=== PATIENT | male | born 1980 | race American Indian/Alaskan Native ===

== ENCOUNTER 2019-03-30 00:35 | Emergency (ER) | payer OTHER ==
[2019-03-30 00:49] VITALS: BP 178/113
[2019-03-30] MEDS ORDERED: ULTRAM PO ONE (01:14)
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
== END 2019-03-30 01:55 | disposition home or self-care (01) ==
LOC: ED 00:35
DX: S16.1XXA Strain of muscle, fascia and tendon at neck level, initial encounter (principal); F17.200 Nicotine dependence, unspecified, uncomplicated; Z98.890 Other specified postprocedural states; V49.49XA Driver injured in collision with other motor vehicles in traffic accident, initial encounter; Y93.89 Activity, other specified; Y92.410 Unspecified street and highway as the place of occurrence of the external cause; Y99.8 Other external cause status

== ENCOUNTER 2019-09-13 07:45 | Emergency (ER) | payer SELFPAY ==
[2019-09-13 08:03] VITALS: BP 143/92
--- NOTE | 2019-09-13 08:22 | Emergency Department Report ---
Abscess Boil HPI - HPI Chief Complaint: Fall Stated Complaint: FALL Time Seen by Provider: 09/13/19 08:20 Duration: 3 Days Location: Perianal Severity: Mild History: Yes Pain, Yes Previous History, No Fever, No Purulent Drainage, No Numbness, No Foreign Body, No Insect Bite HPI: This is a 38-year-old male that presents complaining of right to middle buttock pain and swelling for the past 2-3 days. Patient states that he tripped down a couple of steps earlier today and hit his but which made the pain worse. Patient states that he has had this swelling before on his buttock. He denies fevers/chills/nausea vomiting abdominal pain or any other symptoms. Patient states he is able to have bowel movements normally without any problems, no blood, plus noted in stool. Home Medications: Previous Rx's Medication Instructions Recorded Last Taken Type Cyclobenzaprine [Flexeril] 10 mg PO TID PRN #30 tablet 03/30/19 Unknown Rx Menthol/Camphor [[place] 1 applicatio TP QID PRN #1 tube 03/30/19 Unknown Rx Ointment] Naproxen [Naprosyn TAB] 500 mg PO BID PRN #30 tablet 03/30/19 Unknown Rx Clindamycin [Clindamycin CAP] 300 mg PO TID #21 capsule 09/13/19 Unknown Rx Ibuprofen [Motrin 800 MG tab] 800 mg PO TID #30 tablet 09/13/19 Unknown Rx cephALEXin [Keflex] 500 mg PO Q12HR #10 cap 09/13/19 Unknown Rx Allergies/Adverse Reactions: Allergies Allergy/AdvReac Type Severity Reaction Status Date / Time No Known Allergies Allergy Unverified 09/13/19 07:48 ED Review of Systems ROS: Stated complaint: FALL Other details as noted in HPI Comment: All other systems reviewed and negative ED Past Medical Hx - Past Medical History Previous Medical History?: No - Surgical History Past Surgical History?: No Additional Surgical History: Right arm - Social History Smoking Status: Current Every Day Smoker Substance Use Type: None - Medications Home Medications: Home Medications Medication Instructions Recorded Confirmed Last Taken Type Cyclobenzaprine [Flexeril] 10 mg PO TID PRN #30 tablet 03/30/19 Unknown Rx Menthol/Camphor [[place] 1 applicatio TP QID PRN #1 tube 03/30/19 Unknown Rx Ointment] Naproxen [Naprosyn TAB] 500 mg PO BID PRN #30 tablet 03/30/19 Unknown Rx Clindamycin [Clindamycin CAP] 300 mg PO TID #21 capsule 09/13/19 Unknown Rx Ibuprofen [Motrin 800 MG tab] 800 mg PO TID #30 tablet 09/13/19 Unknown Rx cephALEXin [Keflex] 500 mg PO Q12HR #10 cap 09/13/19 Unknown Rx ED Abscess Boil Physical Exam - Exam General: Vital signs noted. No distress. Alert and acting appropriately. Size: 2 cm Exam: Yes Tenderness (mild), Yes Surrounding Cellulites/Erythema, Yes Normal Neurologic Exam, Yes Normal Circulation, No Fluctuance, No Lymphangitis, No Crepitation, No Heart Murmur Exam: There was some mild she agrees cellulitis region at the right in the bladder close to the rectum. Area was mildly tender to palpation, there was no drainage, there is no fluctuant. It was about 1-2 cm of erythema I & D Note - I & D Note I & D Note: I&D was not performed as finding was not indicated due to patient having in the rectal cellulitis and not a true abscess ED Course Vital Signs 09/13/19 07:50 Temperature 98.8 F Pulse Rate 96 H Respiratory 18 Rate Blood Pressure 143/92 O2 Sat by Pulse 100 Oximetry Critical care attestation.: If time is entered above; I have spent that time in minutes in the direct care of this critically ill patient, excluding procedure time. ED Medical Decision Making - Medical Decision Making 38-year-old male presents with in the rectal cellulitis Patient received clindamycin and Motrin in ED I encouraged patient to continue applying heat compresses as he has been doing for the past 3 days Patient will be sent home on a trial of antibiotics and pain meds and follow-up with primary care physician Vital signs are normal patient is in no acute distress ED Disposition Clinical Impression: Cellulitis of rectal area Disposition: TO HOME OR SELFCARE Is pt being admited?: No Does the pt Need Aspirin: No Condition: Stable Instructions: Cellulitis (ED) Additional Instructions: Make sure to follow up with the primary care physician as discussed. Take all your medications as you've been prescribed. If you have any worsening symptoms or develop new symptoms please return to ED immediately. Prescriptions: Clindamycin [Clindamycin CAP] 300 mg PO TID #21 capsule cephALEXin [Keflex] 500 mg PO Q12HR #10 cap Ibuprofen [Motrin 800 MG tab] 800 mg PO TID #30 tablet Referrals: [facility] [Outside] - 3-5 Days [facility] [Outside] - 3-5 Days Forms: Work/School Release Form(ED) Time of Disposition: 09:31
[2019-09-13] MEDS ORDERED: CLINDAMYCIN 300 MG CAP PO ONE (09:05)
[2019-09-13] MEDS ORDERED: IBUPROFEN 800 MG TAB PO ONE (09:06)
== END 2019-09-13 09:45 | disposition home or self-care (01) ==
LOC: ED 07:45
DX: K61.1 Rectal abscess (principal); F17.200 Nicotine dependence, unspecified, uncomplicated; Z79.899 Other long term (current) drug therapy

== ENCOUNTER 2019-09-14 17:05 | Emergency (ER) | payer SELFPAY ==
--- NOTE | 2019-09-14 20:18 | Event Note ---
ED Screening Note Date of service: 09/14/19 Time: 20:18 ED Screening Note: This is a 38 y.o. M. that presents to the ER with perianal abscess x 5 days. Started on antibiotics yesterday. Reports worsening symptoms. This initial assessment/diagnostic orders/clinical plan/treatment(s) is/are owens bject to change based on patients health status, clinical progression and re- assessment by fellow clinical providers in the ED. Further treatment and workup at subsequent clinical providers discretion. Patient/guardian urged not to elope from the ED as their condition may be serious if not clinically assessed and managed. Initial orders include:
[2019-09-14] MEDS ORDERED: CLINDAMYCIN 300 MG CAP PO ONE (20:41)
[2019-09-14] MEDS ORDERED: SULFAMETHOXAZOLE/TRIMETHOPRIM 800/160MG DS TAB PO ONE (20:41)
[2019-09-14] MEDS ORDERED: oxyCODONE /ACETAMINOPHEN 5-325MG TAB PO ONE (20:41)
[2019-09-14] MEDS ORDERED: LIDOCAINE-MPF (1%) 10 MG/1 ML VIAL 5 ML INFILTRATI ONE (20:41)
[2019-09-14] MEDS ORDERED: ONDANSETRON 4 MG ODT TAB PO ONE (20:41)
--- NOTE | 2019-09-14 22:03 | Emergency Department Report ---
ED General Adult HPI - General Chief complaint: Skin/Abscess/Foreign Body Stated complaint: REVISIT/ABCESS RECTUM Time Seen by Provider: 09/14/19 20:18 Source: patient Mode of arrival: Ambulatory Limitations: No Limitations - History of Present Illness Initial comments: Patient is a 38-year-old male with no past medical history who presents to the ED, acute onset persistent painful swelling erythematous fluctuant rash on the right gluteal cleft for the last 5 days. Patient states that she is currently on oral antibiotics Keflex and clindamycin and ibuprofen and states that the pain is worsened in the last 24 hours. Patient denies fever, chills, nausea, vomiting, headache, chest pain, shortness of breath or change in vision, numbness and tingling of lower extremities bilaterally. MD Complaint: Right gluteal cleft rash -: Sudden, days(s) (5) Location: buttocks (right gluteus) Radiation: non-radiation Severity scale (0 -10): 7 Quality: aching, sharp Consistency: constant Improves with: none Worsens with: none Associated Symptoms: denies other symptoms. denies: confusion, chest pain, cough, diaphoresis, fever/chills, headaches, loss of appetite, malaise, nausea/vomiting, seizure, shortness of breath, syncope Treatments Prior to Arrival: NSAID - Related Data Previous Rx's Medication Instructions Recorded Last Taken Type Cyclobenzaprine [Flexeril] 10 mg PO TID PRN #30 tablet 03/30/19 Unknown Rx Menthol/Camphor [[place] 1 applicatio TP QID PRN #1 tube 03/30/19 Unknown Rx Ointment] Naproxen [Naprosyn TAB] 500 mg PO BID PRN #30 tablet 03/30/19 Unknown Rx Clindamycin [Clindamycin CAP] 300 mg PO TID #21 capsule 09/13/19 Unknown Rx Ibuprofen [Motrin 800 MG tab] 800 mg PO TID #30 tablet 09/13/19 Unknown Rx cephALEXin [Keflex] 500 mg PO Q12HR #10 cap 09/13/19 Unknown Rx Acetaminophen/Codeine [Tylenol 1 tab PO Q6H PRN #12 tab 09/14/19 Unknown Rx /Codeine # 3 tab] Allergies Allergy/AdvReac Type Severity Reaction Status Date / Time No Known Allergies Allergy Unverified 09/13/19 07:48 ED Review of Systems ROS: Stated complaint: REVISIT/ABCESS RECTUM Other details as noted in HPI Constitutional: denies: chills, fever Eyes: denies: eye pain, eye discharge, vision change ENT: denies: ear pain, throat pain Respiratory: denies: cough, shortness of breath, wheezing Cardiovascular: denies: chest pain, palpitations Endocrine: no symptoms reported Gastrointestinal: denies: abdominal pain, nausea, diarrhea Genitourinary: denies: urgency, dysuria Musculoskeletal: denies: back pain, joint swelling, arthralgia Skin: rash (swollen erythematous painful rash on right gluteal cleft), change in color. denies: lesions Neurological: denies: headache, weakness, paresthesias Psychiatric: denies: anxiety, depression Hematological/Lymphatic: denies: easy bleeding, easy bruising ED Past Medical Hx - Past Medical History Previous Medical History?: No - Surgical History Additional Surgical History: Right arm - Social History Smoking Status: Current Every Day Smoker Substance Use Type: None - Medications Home Medications: Home Medications Medication Instructions Recorded Confirmed Last Taken Type Cyclobenzaprine [Flexeril] 10 mg PO TID PRN #30 tablet 03/30/19 Unknown Rx Menthol/Camphor [[place] 1 applicatio TP QID PRN #1 tube 03/30/19 Unknown Rx Ointment] Naproxen [Naprosyn TAB] 500 mg PO BID PRN #30 tablet 03/30/19 Unknown Rx Clindamycin [Clindamycin CAP] 300 mg PO TID #21 capsule 09/13/19 Unknown Rx Ibuprofen [Motrin 800 MG tab] 800 mg PO TID #30 tablet 09/13/19 Unknown Rx cephALEXin [Keflex] 500 mg PO Q12HR #10 cap 09/13/19 Unknown Rx Acetaminophen/Codeine [Tylenol 1 tab PO Q6H PRN #12 tab 09/14/19 Unknown Rx /Codeine # 3 tab] ED Physical Exam - General Limitations: No Limitations General appearance: alert, in no apparent distress - Head Head exam: Present: atraumatic, normocephalic, normal inspection - Eye Eye exam: Present: normal appearance, PERRL, EOMI Pupils: Present: normal accommodation - ENT ENT exam: Present: normal exam, normal orophraynx, mucous membranes moist, TM's normal bilaterally, normal external ear exam - Neck Neck exam: Present: normal inspection, full ROM - Respiratory Respiratory exam: Present: normal lung sounds bilaterally. Absent: respiratory distress, wheezes, rales, rhonchi, chest wall tenderness, accessory muscle use, decreased breath sounds, prolonged expiratory - Cardiovascular Cardiovascular Exam: Present: regular rate, normal rhythm, normal heart sounds. Absent: systolic murmur, diastolic murmur, rubs, gallop - GI/Abdominal GI/Abdominal exam: Present: soft, normal bowel sounds. Absent: tenderness - Extremities Exam Extremities exam: Present: normal inspection, full ROM, normal capillary refill - Back Exam Back exam: Present: normal inspection, full ROM. Absent: tenderness, muscle spasm, paraspinal tenderness - Neurological Exam Neurological exam: Present: alert, oriented X3, CN II-XII intact, normal gait, reflexes normal - Psychiatric Psychiatric exam: Present: normal affect, normal mood - Skin Skin exam: Present: warm, dry, intact, normal color, rash (swollen, fluctuant severely tender erythematous maculopapular rash on the right gluteal cleft), erythema ED Course Vital Signs 09/14/19 09/14/19 20:18 20:57 Temperature 98.5 F Pulse Rate 70 Respiratory 18 16 Rate Blood Pressure 174/99 O2 Sat by Pulse 98 Oximetry - I & D Right Buttocks Type of Procedure: Simple Site: right gluteal cleft Blade Size: 11 I & D Procedure: betadine prep, sterile drapes applied, sterile dressing applied Progress: The patient tolerated the procedure well and the wound was thoroughly iodoform gauze used to pack the wound and the wound dressed appropriately. Patient was discharged home on pain medication and advised to continue taking the oral antibiotics that he has been taking until completion. Patient was advised to follow-up with his primary care physician in 7-10 days for reevaluation or return to the ED immediately if symptoms get worse. ED Medical Decision Making - Medical Decision Making This is a 38-year-old male who presented to the ED with painful swollen erythematous maculopapular fluctuant rash on the right gluteal cleft. In the ED, patient is alert and oriented 3 and his nurse and distress but appears in significant pain. Patient was treated for pain in the ED and given oral antibiotics. Patient the abscess incised and drained per protocol and the patient tolerated the procedure well. The wound was cleaned thoroughly and debrided extensively and an iodoform gauze used to park the wound. The wound was then dressed appropriately. The patient was discharged home on pain medications and advised to continue taking all the previously prescribed antibio tics to the hand. Patient is advised to return to the ED in 2 days for wound check, otherwise follow-up with his primary care physician in 7-10 days for reevaluation. - Differential Diagnosis cellulitis; acute folliculitis; Abscess Critical care attestation.: If time is entered above; I have spent that time in minutes in the direct care of this critically ill patient, excluding procedure time. ED Disposition Clinical Impression: Cellulitis and abscess of buttock Disposition: TO HOME OR SELFCARE Is pt being admited?: No Does the pt Need Aspirin: No Condition: Stable Instructions: Cellulitis (ED), Abscess (ED) Additional Instructions: Take the previously prescribed antibiotic and pain medications, drink plenty of fluids and follow-up with your primary care physician in 7-10 days for reevaluation. Return to the ED immediately if symptoms get worse. Otherwise return to the ED in 2 days for wound recheck and packing removal. Prescriptions: Acetaminophen/Codeine [Tylenol /Codeine # 3 tab] 1 tab PO Q6H PRN #12 tab PRN Reason: Pain , Severe (7-10) Referrals: [facility] [Outside] - 3-5 Days Forms: Work/School Release Form(ED) Time of Disposition: 22:08 Print Language: POLISH
[2019-09-14 22:25] VITALS: BP 156/100
== END 2019-09-14 22:24 | disposition home or self-care (01) ==
LOC: ED 17:05
DX: L03.317 Cellulitis of buttock (principal); L02.31 Cutaneous abscess of buttock; F17.200 Nicotine dependence, unspecified, uncomplicated; Z79.899 Other long term (current) drug therapy
CPT/HCPCS: Q0162

== ENCOUNTER 2021-06-20 02:22 | Emergency (ER) | payer SELFPAY ==
[2021-06-20] MEDS ORDERED: LIDOCAINE (2%) 20 MG/1 ML VIAL 20 ML MDV INFILTRATI STA (03:40)
[2021-06-20 06:00] LABS: Hematocrit 42.3 % (35.5-45.6); Hemoglobin 14.1 gm/dl (11.8-15.2); Mean Corpuscular HGB Conc 33 % (32-34); Mean Corpuscular Volume 95 fl (84-94); Platelet Count 203 K/mm3 (140-440); Red Blood Count 4.46 M/mm3 (3.65-5.03); Red Cell Distribution Width 12.8 % (13.2-15.2)
[2021-06-20 06:14] LABS: BUN/Creatinine Ratio 10; Blood Urea Nitrogen 9 mg/dL (9-20); Calcium 9.1 mg/dL (8.4-10.2); Hemolysis Index 5
--- NOTE | 2021-06-20 07:35 | Event Note ---
ED Screening Note ED Screening Note: 40-year-old male was emerge department complaining of a gluteal abscess. This initial assessment/diagnostic orders/clinical plan/treatment(s) is/are subject to change based on patients health status, clinical progression and re- assessment by fellow clinical providers in the ED. Further treatment and workup at subsequent clinical providers discretion. Patient/guardian urged not to elope from the ED as their condition may be serious if not clinically assessed and managed. Initial orders include: This male complains of a gluteal abscess and initially wound was prepped for incision and drainage. Upon my evaluation of the abscess found it to be a perirectal abscess. We discussed the patient the plan of care obtaining labs and a CT scan of which she initially had agreed but doing some point in time had change his mind and opted not to participate in any lab or CT scan. Off was made for him to be discharged with antibiotics which he also refused. I had a second discussion with with Marcial with with which went much like the primary interaction just took place 2 hours after the initial the attending was notified Dr. Willie Tapia who also had [id number] with Ms. Ceja for about 10 to 13 minutes and came up with a similar conclusion. He then left the emergency department advising he wanted to take him off the board stating that that he will not be covering this bill because the care that he requested was not BM performed he was viewed as a verbal refusal as he did not sign against AGAINST MEDICAL ADVICE. About 25 to 35 minutes at a time later he decided to return to the emergency department and move forward with the initial recommended test M inutes after him leaving
--- NOTE | 2021-06-20 08:09 | Cat Scan Report ---
CT ABDOMEN AND PELVIS WITH CONTRAST HISTORY: rectal abcess OMNI 300 100 ML. COMPARISON: None. TECHNIQUE: CT images of the abdomen and pelvis were obtained following administration of intravenous contrast. All CT scans at this location are performed using CT dose reduction for ALARA by means of automated exposure control. CONTRAST: 100 ml of intravenous contrast administered. FINDINGS: Lungs/bones: Lung bases are clear. No acute osseous abnormality identified. Abdomen/pelvis: There is a perirectal abscess which extends above the pelvic floor musculature and a lso extends to the level of the anus posteriorly and right of midline. In maximal dimensions, the lob ulated abscess measures approximately 8.5 cm craniocaudal by 3 cm transversely by 6.5 cm AP. The liver contains a tiny hypodensity in the posterior segment which is technically indeterminate but statistically likely benign. The liver is otherwise unremarkable. The biliary tree is normal. The ga llbladder, spleen, pancreas, adrenals, kidneys, and proximal GI tract appear unremarkable. Urinary bladder and prostate are normal. No pelvic free fluid. No acute colonic abnormality identifie d. Moderate colonic stool burden is present which most likely represents findings of constipation. IMPRESSION: 1. Large lobulated perirectal abscess as above. Signer Name: Lul Bae MD Signed: 06/20/2021 8:04 AM Workstation Name: [id number]
[2021-06-20] MEDS ORDERED: metroNIDAZOLE/NS 500 MG/100 ML 500 MG/100 ML BAG IV ONE (09:40)
[2021-06-20] MEDS ORDERED: TETANUS,DIPH,PERTUSS(ACELL) VACCINE 0.5 ML SYRINGE IM ONE (09:52)
--- NOTE | 2021-06-20 10:08 | Emergency Department Report ---
- General Chief complaint: Skin/Abscess/Foreign Body Stated complaint: RECTAL ABSCESS Time Seen by Provider: 06/20/21 04:06 Source: patient Mode of arrival: Ambulatory Limitations: No Limitations - History of Present Illness Initial comments: 40 yo male with no significant past medical history complains of perirectal pain for the last 4 days. Worse with palpation and sitting. Rated moderate to severe in intensity. No alleviating factors. Denies trauma or receptive anal intercourse. Denies fever. Patient was initially screened last night and left the department then returned to complete his evaluation causing a delay in his work-up and evaluation. Last tetanus unknown but likely not received within 10 years as per patient - Related Data Previous Rx's Medication Instructions Recorded Last Taken Type Ciprofloxacin HCl [Ciprofloxacin 500 mg PO BID 5 Days #20 tablet 06/20/21 Unknown Rx TAB] metroNIDAZOLE [Flagyl] 500 mg PO Q8HR 5 Days #15 tablet 06/20/21 Unknown Rx oxyCODONE /ACETAMINOPHEN [Percocet 1 tab PO Q6HR PRN #12 tablet 06/20/21 Unknown Rx 5/325] Allergies Allergy/AdvReac Type Severity Reaction Status Date / Time No Known Allergies Allergy Unverified 09/13/19 07:48 Abscess Boil HPI - HPI Chief Complaint: Skin/Abscess/Foreign Body Stated Complaint: RECTAL ABSCESS Time Seen by Provider: 06/20/21 04:06 Home Medications: Previous Rx's Medication Instructions Recorded Last Taken Type Ciprofloxacin HCl [Ciprofloxacin 500 mg PO BID 5 Days #20 tablet 06/20/21 Unknown Rx TAB] metroNIDAZOLE [Flagyl] 500 mg PO Q8HR 5 Days #15 tablet 06/20/21 Unknown Rx oxyCODONE /ACETAMINOPHEN [Percocet 1 tab PO Q6HR PRN #12 tablet 06/20/21 Unknown Rx 5/325] Allergies/Adverse Reactions: Allergies Allergy/AdvReac Type Severity Reaction Status Date / Time No Known Allergies Allergy Unverified 09/13/19 07:48 ED Review of Systems ROS: Stated complaint: RECTAL ABSCESS Other details as noted in HPI Comment: All other systems reviewed and negative ED Past Medical Hx - Past Medical History Previous Medical History?: No - Surgical History Past Surgical History?: Yes Additional Surgical History: Right arm - Social History Smoking Status: Never Smoker Substance Use Type: None - Medications Home Medications: Home Medications Medication Instructions Recorded Confirmed Last Taken Type Ciprofloxacin HCl [Ciprofloxacin 500 mg PO BID 5 Days #20 tablet 06/20/21 Unknown Rx TAB] metroNIDAZOLE [Flagyl] 500 mg PO Q8HR 5 Days #15 tablet 06/20/21 Unknown Rx oxyCODONE /ACETAMINOPHEN [Percocet 1 tab PO Q6HR PRN #12 tablet 06/20/21 Unknown Rx 5/325] ED Physical Exam - General Limitations: No Limitations - Other Other exam information: General: No acute distress Head: Atraumatic Eyes: normal appearance ENT: Moist mucous membranes Neck: Normal appearance, no midline tenderness Chest: Clear to auscultation bilaterally CV: Regular rate and rhythm Abdomen: Soft, normal bowel sounds, nontender, nondistended, no rebound or guarding Rectal: Large swelling to superior right perirectal area that is fluctuant Back: Normal inspection Extremity: Normal inspection, full range of motion Neuro: Alert O x 3, no facial asymmetry, speech clear, no gross motor sensory deficit Psych: Appropriate behavior ED Course Vital Signs 06/20/21 06/20/21 06/20/21 02:50 12:20 12:25 Temperature 99.4 F 97.5 F L Pulse Rate 79 96 H 106 H Respiratory 18 13 20 Rate Blood Pressure 149/93 98/51 124/95 Blood Pressure [Right] O2 Sat by Pulse 98 98 98 Oximetry 06/20/21 06/20/21 06/20/21 12:30 12:35 12:50 Temperature 98.0 F Pulse Rate 95 H 90 91 H Respiratory 20 19 19 Rate Blood Pressure 132/85 128/87 138/75 Blood Pressure [Right] O2 Sat by Pulse 96 95 95 Oximetry 06/20/21 13:30 Temperature Pulse Rate 82 Respiratory 18 Rate Blood Pressure Blood Pressure 142/79 [Right] O2 Sat by Pulse 98 Oximetry - Consultations Consultation #1: 06/20/21 09:50am Case discussed with Dr. Storm on-call surgeon recommends n.p.o. preparation for surgical I&D of perirectal abscess ED Medical Decision Making - Lab Data Result diagrams: 06/20/21 05:39 06/20/21 05:39 Lab Results 06/20/21 06/20/21 Range/Units 05:39 05:39 WBC 8.1 (4.5-11.0) K/mm3 RBC 4.46 (3.65-5.03) M/mm3 Hgb 14.1 (11.8-15.2) gm/dl Hct 42.3 (35.5-45.6) % MCV 95 H (84-94) fl MCH 32 (28-32) pg MCHC 33 (32-34) % RDW 12.8 L (13.2-15.2) % Plt Count 203 (140-440) K/mm3 Seg Neutrophils % [employer] Sodium 138 (137-145) mmol/L Potassium 3.7 (3.6-5.0) mmol/L Chloride 101.0 (98-107) mmol/L Carbon Dioxide 31 H (22-30) mmol/L Anion Gap 10 mmol/L BUN 9 (9-20) mg/dL Creatinine 0.9 (0.8-1.3) mg/dL Estimated GFR > 60 ml/min BUN/Creatinine Ratio 10 % Glucose 92 (75-100) mg/dL Calcium 9.1 (8.4-10.2) mg/dL - Radiology Data Radiology results: report reviewed CT ABDOMEN AND PELVIS WITH CONTRAST HISTORY: rectal abcess OMNI 300 100 ML. COMPARISON: None. TECHNIQUE: CT images of the abdomen and pelvis were obtained following administration of intravenous contrast. All CT scans at this location are performed using CT dose reduction for ALARA by means of automated exposure control. CONTRAST: 100 ml of intravenous contrast administered. FINDINGS: Lungs/bones: Lung bases are clear. No acute osseous abnormality identified. Abdomen/pelvis: There is a perirectal abscess which extends above the pelvic floor musculature and also extends to the level of the anus posteriorly and right of midline. In maximal dimensions, the lobulated abscess measures approximately 8.5 cm craniocaudal by 3 cm transversely by 6.5 cm AP. The liver contains a tiny hypodensity in the posterior segment which is technically indeterminate but statistically likely benign. The liver is otherwise unremarkable. The biliary tree is normal. Th e gallbladder, spleen, pancreas, adrenals, kidneys, and proximal GI tract appear unremarkable. Urinary bladder and prostate are normal. No pelvic free fluid. No acute colonic abnormality identified. Moderate colonic stool burden is present which most likely represents findings of constipation. IMPRESSION: 1. Large lobulated perirectal abscess as above. - Medical Decision Making 40-year-old nontoxic-appearing male presents to the hospital with large perirectal abscess confirmed by CT. Case discussed with surgery. N.p.o. recommended in preparation for surgical drainage. Patient treated with Levaquin and Flagyl IV in the ED. Patient also received tetanus booster. Patient appears very comfortable lying on his stomach and did not request pain medication Critical Care Time: No Critical care attestation.: If time is entered above; I have spent that time in minutes in the direct care of this critically ill patient, excluding procedure time. ED Disposition Clinical Impression: Perirectal abscess Disposition: ADMITTED INPATIENT Is pt being admited?: Yes Condition: Stable Time of Disposition: 10:08 (Case discussed with Dr. Douglass admit to Dr. Bass)
--- NOTE | 2021-06-20 10:59 | History and Physical Report ---
History of Present Illness Date of examination: 06/20/21 Date of admission: 06/20/21 10:10 Chief complaint: Rectal pain/discomfort History of present illness: Patient is a 40 YOM with no significant PMHx who presented after 4 days of perirectal pain. He denies fever, chills, and night sweats. He also denies rectal discharge and anal receptive sexual activity. CT abdomen/pelvis showed large lobulated perirectal abscess. He was given levaquin and flagyl x1 in the E D and was taken to the OR for I&D. Previous admissions reviewed, and patient was admitted in 2019 with perirectal abscess. Past History Past Medical History: No medical history Past Surgical History: Other (R humerus fracture repair) Social history: other (marijuana use) Medications and Allergies Allergies Allergy/AdvReac Type Severity Reaction Status Date / Time No Known Allergies Allergy Unverified 09/13/19 07:48 Home Medications Medication Instructions Recorded Confirmed Last Taken Type Ciprofloxacin HCl [Ciprofloxacin 500 mg PO BID 5 Days #20 tablet 06/20/21 Unknown Rx TAB] metroNIDAZOLE [Flagyl] 500 mg PO Q8HR 5 Days #15 tablet 06/20/21 Unknown Rx oxyCODONE /ACETAMINOPHEN [Percocet 1 tab PO Q6HR PRN #12 tablet 06/20/21 Unknown Rx 5/325] Active Meds: Active Medications Levofloxacin/Dextrose (Levaquin 750mg/150ml) 750 mg in 150 mls @ 100 mls/hr IV ONCE ONE; Protocol Stop: 06/20/21 11:09 Last Admin: 06/20/21 10:27 Dose: 100 mls/hr Documented by: Review of Systems All systems: negative Exam - Physical Exam Narrative exam: GENERAL: Thin male. Sitting on the side of the bed in no acute distress. CHEST/LUNGS: CTAB on room air HEART/CARDIOVASCULAR: RRR. No murmur, rubs or gallops appreciated. ABDOMEN: +BS. NT/ND. : Exam deferred by patient SKIN: No rashes noted. NEURO: No focal motor deficit. Follows all commands and is ambulatory. MUSCULOSKELETAL: No joint effusion EXTREMITIES: No cyanosis, clubbing or edema. PSYCH: Cooperative. - Constitutional Vitals: Temp Pulse Resp BP Pulse Ox 99.4 F 79 18 149/93 98 06/20/21 02:50 06/20/21 02:50 06/20/21 02:50 06/20/21 02:50 06/20/21 02:50 - Allied Health Allied health notes reviewed: nursing Results - Labs CBC & Chem 7: 06/20/21 05:39 06/20/21 05:39 Labs: Laboratory Last Values WBC 8.1 K/mm3 (4.5-11.0) 06/20/21 05:39 RBC 4.46 M/mm3 (3.65-5.03) 06/20/21 05:39 Hgb 14.1 gm/dl (11.8-15.2) 06/20/21 05:39 Hct 42.3 % (35.5-45.6) 06/20/21 05:39 MCV 95 fl (84-94) H 06/20/21 05:39 MCH 32 pg (28-32) 06/20/21 05:39 MCHC 33 % (32-34) 06/20/21 05:39 RDW 12.8 % (13.2-15.2) L 06/20/21 05:39 Plt Count 203 K/mm3 (140-440) 06/20/21 05:39 Seg Neutrophils % [employer] 06/20/21 05:39 Sodium 138 mmol/L (137-145) 06/20/21 05:39 Potassium 3.7 mmol/L (3.6-5.0) 06/20/21 05:39 Chloride 101.0 mmol/L (98-107) 06/20/21 05:39 Carbon Dioxide 31 mmol/L (22-30) H 06/20/21 05:39 Anion Gap 10 mmol/L 06/20/21 05:39 BUN 9 mg/dL (9-20) 06/20/21 05:39 Creatinine 0.9 mg/dL (0.8-1.3) 06/20/21 05:39 Estimated GFR > 60 ml/min 06/20/21 05:39 BUN/Creatinine Ratio 10 % 06/20/21 05:39 Glucose 92 mg/dL (75-100) 06/20/21 05:39 Calcium 9.1 mg/dL (8.4-10.2) 06/20/21 05:39 - Imaging and Cardiology CT scan - pelvis: report reviewed Assessment and Plan Assessment and plan: #Perirectal abscess -Patient taken to the OR for I&D by general surgery earlier today -Procedure without complication, patient requested discharge -Flagyl and Cipro x5 days -Wound care per surgery recommendations provided at discharge -As needed pain medication Advance Directives: No VTE prophylaxis?: Not ordered Contraindication Mechanical VTE Prophylaxis: Treatment Not Indicated Reason for no VTE Prophylaxis: Pt non compliant/refused Plan of care discussed with patient/family: Yes
--- NOTE | 2021-06-20 11:26 | Anesthesia Consultation ---
Anesthesia Consult and Med Hx Date of service: 06/20/21 - Airway Anesthetic Teeth Evaluation: Good ROM Head & Neck: Adequate Mental/Hyoid Distance: Adequate Mallampati Class: Class II Intubation Access Assessment: Good - Pulmonary Exam CTA: Yes - Cardiac Exam Cardiac Exam: RRR - Pre-Operative Health Status ASA Pre-Surgery Classification: ASA2 Proposed Anesthetic Plan: General - Pulmonary Hx Smoking: Yes - Other Systems Hx Alcohol Use: Yes
--- NOTE | 2021-06-20 11:27 | Anesthesia Day of Surgery ---
Anesthesia Day of Surgery - Day of Surgery Patient Examined: Yes Patient H&P Reviewed: Yes Patient is NPO: No (water >2hrs, )
[2021-06-20] MEDS ORDERED: MIDAZOLAM 2 MG/2 ML INJ ONE (11:31)
[2021-06-20] MEDS ORDERED: fentaNYL 100 MCG/2 ML INJ ONE (11:31)
[2021-06-20] MEDS ORDERED: propofoL 200 MG/20 ML VIAL IV ONE (11:32)
--- NOTE | 2021-06-20 11:52 | Consultation ---
History of Present Illness Consult date: 06/20/21 - History of present illness History of present illness: 40 yo male with several day h/o progressively severe perirectal pain. No h/o DM. No h/o same problem before. Medications and Allergies Allergies Allergy/AdvReac Type Severity Reaction Status Date / Time No Known Allergies Allergy Unverified 09/13/19 07:48 Home Medications Medication Instructions Recorded Confirmed Last Taken Type Cyclobenzaprine [Flexeril] 10 mg PO TID PRN #30 tablet 03/30/19 Unknown Rx Menthol/Camphor [[place] 1 applicatio TP QID PRN #1 tube 03/30/19 Unknown Rx Ointment] Naproxen [Naprosyn TAB] 500 mg PO BID PRN #30 tablet 03/30/19 Unknown Rx Clindamycin [Clindamycin CAP] 300 mg PO TID #21 capsule 09/13/19 Unknown Rx Ibuprofen [Motrin 800 MG tab] 800 mg PO TID #30 tablet 09/13/19 Unknown Rx cephALEXin [Keflex] 500 mg PO Q12HR #10 cap 09/13/19 Unknown Rx Acetaminophen/Codeine [Tylenol 1 tab PO Q6H PRN #12 tab 09/14/19 Unknown Rx /Codeine # 3 tab] Review of Systems All systems: negative Exam Vital Signs Temp Pulse Resp BP Pulse Ox 99.4 F 79 18 149/93 98 06/20/21 02:50 06/20/21 02:50 06/20/21 02:50 06/20/21 02:50 06/20/21 02:50 - General physical appearance Positive: well developed, well nourished, no distress - Eyes Positive: PERRL, normal occular movement - ENT Positive: normal pinna, normal nares, normal mucosa, no hearing loss, no congestion - Neck Positive: no masses, no bruits, trachea midline, no venous distension - Respiratory Positive: normal expansion, normal respiratory effort, clear to auscultation - Cardiovascular Rhythm: regular Heart Sounds: Present: S1 & S2. Absent: rub, click - Extremities Extremities: no ischemia, pulses symmetrical, No edema - Breasts Breasts: normal, no mass, no skin changes - Abdomen Abdomen: Present: soft, bowel sounds normal. Absent: tender, distended Hernia: none - Genitourinary Male Genitourinary: normal Female Genitourinary: normal - Rectum Rectum: other (There is an obvious, pointing right perirectal abscess.) - Integumentary no rash, no growths, no abnormal pigmentation - Neurologic Neurologic: alert and oriented to time, place and person, motor strength and sensation are grossly intact - Musculoskeletal normal gait, normal posture - Psychiatric Psychiatric: appropriate mood/affect, intact judgment & insight Results - Labs 06/20/21 05:39 06/20/21 05:39 Abnormal lab results 06/20/21 06/20/21 Range/Units 05:39 05:39 MCV 95 H (84-94) fl RDW 12.8 L (13.2-15.2) % Carbon Dioxide 31 H (22-30) mmol/L Diabetes panel 06/20/21 Range/Units 05:39 Sodium 138 (137-145) mmol/L Potassium 3.7 (3.6-5.0) mmol/L Chloride 101.0 (98-107) mmol/L Carbon Dioxide 31 H (22-30) mmol/L BUN 9 (9-20) mg/dL Creatinine 0.9 (0.8-1.3) mg/dL Glucose 92 (75-100) mg/dL Calcium 9.1 (8.4-10.2) mg/dL Calcium panel 06/20/21 Range/Units 05:39 Calcium 9.1 (8.4-10.2) mg/dL Pituitary panel 06/20/21 Range/Units 05:39 Sodium 138 (137-145) mmol/L Potassium 3.7 (3.6-5.0) mmol/L Chloride 101.0 (98-107) mmol/L Carbon Dioxide 31 H (22-30) mmol/L BUN 9 (9-20) mg/dL Creatinine 0.9 (0.8-1.3) mg/dL Glucose 92 (75-100) mg/dL Calcium 9.1 (8.4-10.2) mg/dL Adrenal panel 06/20/21 Range/Units 05:39 Sodium 138 (137-145) mmol/L Potassium 3.7 (3.6-5.0) mmol/L Chloride 101.0 (98-107) mmol/L Carbon Dioxide 31 H (22-30) mmol/L BUN 9 (9-20) mg/dL Creatinine 0.9 (0.8-1.3) mg/dL Glucose 92 (75-100) mg/dL Calcium 9.1 (8.4-10.2) mg/dL - Imaging CT scan - abdomen: report reviewed CT scan - pelvis: report reviewed Assessment and Plan - Patient Problems (1) Perirectal abscess Current Visit: Yes Status: Acute Plan to address problem: 1) To OR for I&D.
[2021-06-20] MEDS ORDERED: HYDROmorphone 1 MG/1 ML INJ ONE (11:55)
[2021-06-20] MEDS ORDERED: SODIUM CHLORIDE 0.9% IRR 1,000 ML BOTTLE IR ONE (11:59)
[2021-06-20] MEDS ORDERED: BUPIVACAINE/PF (0.25%) 2.5 MG/ML 30 ML VIAL INFILTRATI ONE (12:01)
[2021-06-20] MEDS ORDERED: LIDOCAINE PF 100 MG/5 ML (CARDIAC SYRINGE) IV ONE (12:08)
[2021-06-20] MEDS ORDERED: dexAMETHasone 20 MG/5 ML VIAL ONE (12:08)
[2021-06-20] MEDS ORDERED: KETOROLAC 30 MG/1 ML INJ ONE (12:08)
[2021-06-20] MEDS ORDERED: SUCCINYLCHOLINE CHLORIDE 200 MG/10 ML INJ MDV ONE (12:08)
[2021-06-20] MEDS ORDERED: ONDANSETRON 4 MG/2 ML INJ ONE (12:08)
--- NOTE | 2021-06-20 12:10 | Procedure Note ---
Date of procedure: 06/20/21 Pre-op diagnosis: Right rectal abscess Post-op diagnosis: same Procedure: I&D of right rectal abscess Description of procedure: Pt was placed supine on the OR table. General anesthesia was administered. Pt was repositioned to a dorsal lithotomy position and the perineal area and buttocks prepped and draped. An ellipse of skin was excised from the pointing right buttock abscess and a moderate amount of pus was drained. This was collected for C&S. The abscess cavity was irrigated with warm saline. Hemostasis was obtained with the Bovie. The abscess cavity was packed open with a dilute Betadine moistened Kerlix roll followed by dry 4 X 4's and mesh panties. Pt tolerated the procedure well. Pt was taken to PACU in stable condition. Anesthesia: GETA Surgeon: JEFF SEGURA Estimated blood loss: minimal Pathology: list (C&S) Specimen disposition: to lab Condition: stable Disposition: PACU
[2021-06-20] MEDS ORDERED: LACTATED RINGERS 1,000 ML ONE (12:20)
--- NOTE | 2021-06-20 12:39 | Post Anesthesia Evaluation ---
- Post Anesthesia Evaluation Patient Participated: Yes Airway Patent: Yes Stable Respiratory Function: Yes Nausea/Vomiting: No Temp > 96.8F: Yes Pain Manageable: Yes Adequeate Hydration: Yes Anesthesia Complications: No Block Receding Appropriately: Not Applicable Patient on Ventilator: No
[2021-06-20 13:30] VITALS: BP 142/79
[2021-06-20] MEDS ORDERED: ACETAMINOPHEN 325 MG TAB PO PRN (13:46)
[2021-06-20] MEDS ORDERED: ONDANSETRON 4 MG/2 ML INJ IV PRN (13:46)
[2021-06-20] MEDS ORDERED: MORPHINE 4 MG/1 ML INJ IV PRN (13:46)
[2021-06-20] MEDS ORDERED: oxyCODONE /ACETAMINOPHEN 5-325MG TAB PO PRN (13:46)
--- NOTE | 2021-06-20 14:10 | Discharge Summary ---
Providers - Providers Date of Admission: 06/20/21 10:10 Date of discharge: 06/20/21 Attending physician: JOSE OLMSTEAD MD 06/20/21 09:52 Consult to Physician [CONS] Urgent Comment: Consulting Provider: JEFF SEGURA Physician Instructions: Reason For Exam: perirectal abscess Primary care physician: SHOE CUTTER Hospitalization Reason for admission: Perirectal abscess Condition: Stable Procedures: I&D of perirectal abscess 06/20 Hospital course: 40-year-old male with no significant significant past medical history was admitted for perirectal abscess after 4 days of perirectal pain. CT abdomen pelvis showed large lobulated perirectal abscess. Received a dose of Levaquin and Flagyl in the ED. General surgery was consulted for incision and drainage of abscess. Patient was discharged postprocedure with antibiotics and as needed pain meds. Disposition: ADMITTED INPATIENT Final Discharge Diagnosis (Prints w/discharge instructions): Perirectal abscess Time spent for discharge: 20 minutes Core Measure Documentation - Palliative Care Palliative Care/ Comfort Measures: Not Applicable - Core Measures Any of the following diagnoses?: none - VTE Discharge Requirements Deep Vein Thrombosis/Pulmonary Embolism Present on Admission: No Has pt received <5 days of overlap therapy or INR<2.0: No Anticoagulant overlap therapy prescribed at discharge: No Contraindication No Overlap Therapy order at DC: Not Indicated - Acute [place] Discharge Requirements Aspirin at discharge: No Reason for no aspirin on DC: Patient refusal (Not applicable) JOANNE/ARB for LVSD if EF <40%: Not Applicable Beta suzan at discharge: No Reason for no beta suzan on DC: Patient refusal (Not applicable) Statin for LDL = or >100 mg/dl on DC: Not Applicable - Heart Failure Discharge Requirements JOANNE/ARB for LVSD if EF <40%: Not Applicable Beta suzan at discharge: No Reason for no beta suzan on DC: Patient refusal (Not indicated) - Stroke Discharge Requirements Statin for LDL = or >70 mg/dl on DC: Not Applicable Reason for no statin on DC: Not Indicated Anticoag for atrial fib/atrial flutter: Not Applicable Reason for no anticoag for AF/F on DC: Not Indicated Antithrombotic for ischemic stroke: No Reason for no antithrombotic on DC: Not Indicated Exam - Physical Exam Narrative exam: GENERAL: Thin male. Sitting on the side of the bed in no acute distress. CHEST/LUNGS: CTAB on room air HEART/CARDIOVASCULAR: RRR. No murmur, rubs or gallops appreciated. ABDOMEN: +BS. NT/ND. : Exam deferred by patient SKIN: No rashes noted. NEURO: No focal motor deficit. Follows all commands and is ambulatory. MUSCULOSKELETAL: No joint effusion EXTREMITIES: No cyanosis, clubbing or edema. PSYCH: Cooperative. - Constitutional Vitals: Temp Pulse Resp BP Pulse Ox 98.0 F 82 18 142/79 98 06/20/21 12:50 06/20/21 13:30 06/20/21 13:30 06/20/21 13:30 06/20/21 13:30 Plan Assessment: Perirectal abscess drained by surgery. Patient AAOx3 post procedure, with no complications. Will discharge home with 5 day course of antibiotics and PRN pain medication. Follow up with: PRIMARY CARE, [Primary Care Provider] - 7 Days Forms: Outpatient Surgery DC Inst. Prescriptions: Ciprofloxacin HCl [Ciprofloxacin TAB] 500 mg PO BID 5 Days #20 tablet metroNIDAZOLE [Flagyl] 500 mg PO Q8HR 5 Days #15 tablet oxyCODONE /ACETAMINOPHEN [Percocet 5/325] 1 tab PO Q6HR PRN #12 tablet PRN Reason: Pain
[2021-06-20] MEDS ORDERED: HEPARIN 5,000 UNIT/1 ML VIAL SUB-Q SCH (15:00)
[2021-06-20 16:55] LABS: Band Neutrophils # (Manual) 0.3 K/mm3; Myelocytes # (Manual) 0.2 K/mm3; Promyelocytes # (Manual) 0.1 K/mm3; Total Cells Counted 100
[2021-06-20 16:56] LABS: Large Platelets 1+; Platelet Estimate Consistent w Auto
== END 2021-06-20 15:43 | disposition admitted as inpatient to this hospital (09) ==
LOC: ED 02:22 → 4A 10:10 → UNDOADMOB 10:10
DX: K61.1 Rectal abscess (principal); Z79.899 Other long term (current) drug therapy
CPT/HCPCS: 36415; 46040; 74177; 80048; 85007; 85025; 87075; 87116; 90715; 96365; 96368; 99284; J0330; J1100; J1170; J1885; J1956; J2001; J2250; J2704; J3010; J7120; Q9967; J2405